=== PATIENT | female | born 1990 | race African-American/Black ===

== ENCOUNTER 2019-07-10 20:54 | Emergency (ER) | payer OTHER ==
[~2019-07-10] VITALS: Ht 152.4 cm; Wt 63.5 kg
[2019-07-10 20:56] VITALS: BP 127/77
[2019-07-10] MEDS ORDERED: NORCO 5-325 TA1 EAC1 PO (23:10)
== END 2019-07-10 23:25 | disposition home or self-care (01) ==
LOC: ER 20:54
DX: M25.441 Effusion, right hand (principal); M79.644 Pain in right finger(s); R05 Cough; F17.210 Nicotine dependence, cigarettes, uncomplicated; Z88.6 Allergy status to analgesic agent